=== PATIENT | female | born 1950 | race Caucasian/White ===

== ENCOUNTER 2024-05-18 09:15 | Outpatient (REF) | payer MEDICARE, SELFPAY ==
--- NOTE | ~2024-05-18 | XR_ITS ---
EXAMINATION: Bilateral knee series CLINICAL INFORMATION: Pain in the knees COMPARISON: None. TECHNIQUE: 3 views of the right knee including AP upright. Single AP upright view of the left knee. FINDINGS: Right knee: The bones joints and soft tissues are normal. No effusion. Limited left knee: The medial lateral compartments and surrounding bone and soft tissues are normal. XR/XR knee LT 1V IMPRESSION: Right knee: Normal. Limited left knee: Normal Electronically signed by: Link Hopkins MD 05/22/2024 01:48 PM EST
--- NOTE | ~2024-05-18 | XR_ITS ---
EXAMINATION: Bilateral knee series CLINICAL INFORMATION: Pain in the knees COMPARISON: None. TECHNIQUE: 3 views of the right knee including AP upright. Single AP upright view of the left knee. FINDINGS: Right knee: The bones joints and soft tissues are normal. No effusion. Limited left knee: The medial lateral compartments and surrounding bone and soft tissues are normal. XR/XR knee RT 3V IMPRESSION: Right knee: Normal. Limited left knee: Normal Electronically signed by: Link Hopkins MD 05/22/2024 01:48 PM EST
== END 2024-05-18 09:16 | disposition home or self-care (01) ==
LOC: HO.HOSX 09:15
PROVIDERS: Visit Provider Physician Assistant
DX: M25.561 Pain in right knee (principal); M25.562 Pain in left knee; S80.01XA Contusion of right knee, initial encounter
CPT/HCPCS: 73560; 73562; 99202

== ENCOUNTER 2024-05-18 11:01 | Outpatient (AMB) | payer MEDICARE, SELFPAY ==
--- NOTE | 2024-05-18 11:28 | A.OFFVIS_ITS ---
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 Patient reports she slipped down her hard wood stairs. She mentions that her pain is underneath her knee. Pain is worse when she is making a turn or any sudden movements. Patient tired lidocaine patches with no relief and taking 600mg of ibuprofen with mild relief. 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 The patient presented to the [facility] ED at [place] on 05/09/2024 status post a slip and fall on her right knee, resulting in an abrasion to the anterior aspect and pain. She is ambulating with a slight limp. X-rays of the right knee were obtained in the ER. She was recommended activity modification as needed and taking ibuprofen 600 mg Q6-8H and Tylenol as needed for pain. While in the office today, the patient reports right knee pain. She reports that she slipped down on hardwood stairs. She specifies pain is underneath her right knee. She reports pain is worse when she turns to the sides and with any sudden movements. She has tried lidocaine patches with no relief and ibuprofen 600 mg with mild relief. [facility] Social History (Updated 05/18/24 @ 11:35 by Naif Mario) Alcohol intake: current Alcohol intake frequency: 0-2 drinks per day Patient Tobacco Use Status: Never used Tobacco Current occupational status: employed Current occupation: insurance sales executive Review of Systems Const All systems reviewed & are unremarkable except as noted in HPI and below Physical Exam Const General: cooperative and no acute distress Orientation/consciousness: patient oriented x3 Resp Effort & Inspection: normal respiratory effort and able to speak in complete sentences Cardio Peripheral pulses: Peripheral pulses 2+ throughout Skin General skin exam: no rashes or lesions noted Neuro General: patient oriented x3 Extrem Other: Right knee: Normal to inspection. Resolving ecchymosis along the anterior aspect of the patella. No joint diffusion noted. No erythema. Full range of motion. Tenderness to palpation over the anterior aspect of the patella. NVI. Assessment & Plan Assessment & Plan (1) Contusion of right patella: Code(s): S80.01XA - Contusion of right knee, initial encounter Category: Medical Plan Mr. Rivera is a 73-year-old female who presents in the office today, as a new patient, for an evaluation of right knee pain. The patient presented to the [facility] ED at [place] on 05/09/2024 status post a slip and fall on her right knee, resulting in an abrasion to the anterior aspect and pain. She is ambulating with a slight limp. X-rays of the right knee were obtained in the ER. She was recommended activity modification as needed and taking ibuprofen 600 mg Q6-8H and Tylenol as needed for pain. While in the office today, the patient reports right knee pain. She reports that she slipped down on hardwood stairs. She specifies pain is underneath her right knee. She reports pain is worse when she turns to the sides and with any sudden movements. She has tried lidocaine patches with no relief and ibuprofen 600 mg with mild relief. The case and the x-rays imagings were reviewed by . Brian was available to speak with me but unable to see the patient, and a collaborative treatment plan was made. There is a question of a small vertical fracture line on the patella. The plan is to treat this with a playmaker knee brace. The patient was fitted into a playmaker knee brace, off the shelf today. She should avoid kneeling. Activity and weight bearing as tolerated. Follow-up will be in 4 weeks with me, or sooner if needed. X-rays of the right knee, which were obtained while in the office today and were reviewed by me, Josefina Hickman PA-C, revealed: Subtle lucency along the sunrise view of the patella, which is questionable for fracture versus vasculature. X-rays of the right knee, obtained on 05/09/24, revealed: Trace probable knee joint effusion. No acute osseous abnormality. No evidence of acute or healing fracture, dislocation or bone lesion. Orders: Orders XR knee RT 3V Today M25.569 - Pain in unspecified knee XR knee LT 1V Today M25.569 - Pain in unspecified knee Patient Instructions: Scribed by [facility] medical director, for Josefina Hickman PA-C on 05/18/24 at 11:49 am EST. Coding Level of Care Code New Pt Level 4 (82929) Diagnoses Contusion of right patella S80.01XA
== END 2024-05-18 12:10 | disposition home or self-care (01) ==
PROVIDERS: PCP Registered Nurse; Visit Provider Physician Assistant
DX: S80.01XA Contusion of right knee, initial encounter (principal)
CPT/HCPCS: 99204